=== PATIENT | male | born 1970 ===

== ENCOUNTER 2020-10-01 10:25 | Outpatient (RCR) | payer OTHER | END 2020-12-30 | disposition home or self-care (01) | LOC: WSOH | DX: M25.512 Pain in left shoulder (principal); R07.89 Other chest pain; Z98.890 Other specified postprocedural states; Y99.0 Civilian activity done for income or pay ==

== ENCOUNTER 2020-12-17 10:13 | Outpatient (RCR) | payer OTHER | END 2021-03-17 | disposition home or self-care (01) | LOC: WSOH | DX: M67.814 Other specified disorders of tendon, left shoulder (principal); Y99.0 Civilian activity done for income or pay ==

== ENCOUNTER 2020-12-31 10:18 | Outpatient (RCR) | payer OTHER | END 2021-03-31 | disposition home or self-care (01) | LOC: WSOH | DX: M67.814 Other specified disorders of tendon, left shoulder (principal); R07.89 Other chest pain; Y99.0 Civilian activity done for income or pay ==